=== PATIENT | female | born 1940 ===

== ENCOUNTER 2017-01-28 06:29 | Day surgery (SDC) | payer MEDICARE, MEDICAID ==
[2017-01-28 07:04] VITALS: BMI 26.9
[2017-01-28 07:32] LABS: ADD MANUAL DIFF? NO
[2017-01-28 07:37] LABS: BASO # 0.05 K/mm3 (0.0-2.0); BASO % 0.6 % (0.0-3.0); EOS # 0.1 (0.0-0.7); EOS % 0.6 % (1.5-5.0); GRAN # 5.29 (1.4-6.5); GRAN % 64.3 % (50.0-68.0); HEMATOCRIT 44.2 % (36.0-48.0); LYMPH # 2.2 (1.2-3.4); LYMPH % 26.1 % (22.0-35.0); MEAN CELL VOLUME 80.7 fL (80.0-105.0); MEAN CORPUSCULAR HEMOGLOBIN 26.1 pg (25.0-35.0); MEAN CORPUSCULAR HGB CONC 32.4 g/dl (31.0-37.0); MEAN PLATELET VOLUME 12.4 fl (7.0-11.0); MONO # 0.7 (0.1-0.6); MONO % 8.4 % (1.0-6.0); PLATELET COUNT 105 10^3/uL (120.0-450.0); RED CELL DISTRIBUTION WIDTH 13.8 % (11.5-14.5); WHITE BLOOD COUNT 8.2 10^3/ul (4.5-11.0)
[2017-01-28 07:48] LABS: BLOOD UREA NITROGEN 19 mg/dL (7-21); CALCIUM 9.9 mg/dL (8.4-10.5); CARBON DIOXIDE 27 mmol/L (21-33); CHLORIDE 98 mmol/L (98-107); CHOLESTEROL 100 mg/dL (130-200); GFR AFRICAN-AMERICAN > 60; GLUCOSE,RANDOM 153 mg/dL (70-110); SODIUM 139 mmol/L (132-148)
[2017-01-28 07:50] LABS: INR 1.15 (0.93-1.08); PARTIAL THROMBOPLASTIN TIME 25.7 Seconds (23.7-30.8)
[2017-01-28] MEDS ORDERED: Midazolam 2 MG/2 ML VIAL ONE ×2 (08:41→09:13)
[2017-01-28] MEDS ORDERED: Lidocaine 2% Inj (20ml) ONE (08:41)
[2017-01-28] MEDS ORDERED: Iodixanol 320 MG/ML 100 ML BOTTLE IV ONE (08:42)
[2017-01-28] MEDS ORDERED: Iodixanol 320 MG/ML 200 ML BOTTLE IV ONE (08:42)
[2017-01-28] MEDS ORDERED: Sodium Chloride 0.45% 1,000 ML IV SCH (09:45)
--- NOTE | 2017-01-28 12:50 | CARDCATH ---
PROCEDURE DATE: 01/28/2017 HISTORY OF PRESENT ILLNESS: The patient is a 76-year-old woman with a history of diabetes mellitus, hypertension and constant alcohol use, who presents with evaluation of her cardiomyopathy. PROCEDURE: Left heart catheterization with coronary angiography and left ventriculogram. The right femoral artery was cannulated with a 6-Wolof sheath. There were no complications. Findings on left ventriculogram revealed a dilated left ventricle with diffuse and severe hypokinesis . Estimated ejection fraction is between 20% and 25%. There was 1-2+ mitral regurgitation. Her coronary anatomy revealed a left main artery that was unremarkable. The LAD and diagonal vessels revealed diffuse atherosclerosis with mild ectasis throughout its course . There is SUKHWINDER 3 flow noted. No critical lesions noted. The circumflex artery and obtuse marginal branches revealed intimal irregularities without significan t stenosis. The right coronary artery is selectively cannulized and found to be a codominant vessel. The RCA rev ealed intimal irregularities without significant stenoses. Angio-Seal was used to close the femoral artery site. The patient tolerated the procedure well. SUMMARY: The procedure revealed a dilated cardiomyopathy with an ejection fraction of 20%-25%. Her coronary arteries revealed diffuse atherosclerosis with no critical lesions. There is ectasis in the proximal LAD without inhibition to flow. Given these findings, the patient will need to be on ZOIE inhibitor and beta ivonne, which she dorothy y is on. I have discussed with the patient the need to start an aerobic exercise to help improve her overall physiology, which may help her end-stage dilated cardiomyopathy. Michael Morales MD cc: [id number] TT: 01/28/2017 12:50:04 [email or web address]
[2017-01-29 16:02] VITALS: BP 119/70; PULSE 79; RESP 20; TEMP 97.7; O2SAT 98
== END 2017-01-28 16:05 | disposition home or self-care (01) ==
LOC: CATH 06:29
PROVIDERS: ATTEND Internal Medicine Cardiovascular Disease
DX: I42.0 Dilated cardiomyopathy (principal); I25.10 Atherosclerotic heart disease of native coronary artery without angina pectoris; I34.0 Nonrheumatic mitral (valve) insufficiency; I10 Essential (primary) hypertension; E11.9 Type 2 diabetes mellitus without complications; Z79.84 Long term (current) use of oral hypoglycemic drugs
CPT/HCPCS: 36415; 80048; 80061; 85025; 85610; 85730; 86850; 86900; 93458; 99152; C1760; C1769; C2629; J1644; J2250; J3010; J7030; J7040; Q9967